=== PATIENT | female | born 1930 | race Caucasian/White ===

== ENCOUNTER 2016-07-31 09:25 | Emergency (ER) | payer OTHER ==
[~2016-07-31] VITALS: Ht 160 cm; Wt 51.8 kg
[~2016-07-31 09:25] MED LIST: ALTACE10 MG PO; ASPIR 8181 MG PO; ATENOLOL25 MG PO; COLACE100 MG PO; D3-50001 TAB PO; FISH OIL CONC1000 MG PO; KEFLEX500 MG PO; LAC PO; OCUVITE1 TA2 PO; SIMVASTATIN40 M1 PO
[2016-07-31 11:01] VITALS: BP 156/89
== END 2016-07-31 11:01 | disposition home or self-care (01) ==
LOC: ED 09:25
DX: S62.102A Fracture of unspecified carpal bone, left wrist, initial encounter for closed fracture (principal); E78.00 Pure hypercholesterolemia, unspecified; I10 Essential (primary) hypertension; M19.90 Unspecified osteoarthritis, unspecified site; W18.30XA Fall on same level, unspecified, initial encounter; Y93.89 Activity, other specified; Y99.8 Other external cause status; Y92.89 Other specified places as the place of occurrence of the external cause

== ENCOUNTER 2017-02-27 16:56 | Emergency (ER) | payer OTHER ==
[~2017-02-27] VITALS: Ht 162.6 cm; Wt 54.0 kg
[2017-02-27 17:01] VITALS: Ht 162.6 cm; Wt 54.0 kg
[2017-02-27 20:53] LABS: BASOPHIL % 0.4 % (0-2); PLATELET COUNT 156 x10^3mcL (130-400); RED CELL DISTRIBUTION WIDTH 13.1 % (11.5-14.5)
[2017-02-27 22:11] VITALS: BP 155/95
== END 2017-02-27 22:11 | disposition home or self-care (01) ==
LOC: ED 16:56
PROVIDERS: Emergency Medicine
DX: S50.01XA Contusion of right elbow, initial encounter (principal); I10 Essential (primary) hypertension; E78.00 Pure hypercholesterolemia, unspecified; W22.8XXA Striking against or struck by other objects, initial encounter; Y93.89 Activity, other specified; Y99.8 Other external cause status; Y92.89 Other specified places as the place of occurrence of the external cause
CPT/HCPCS: 36415; 90715